=== PATIENT | male | born 1935 | race Caucasian/White ===

== ENCOUNTER 2020-09-25 11:22 | Outpatient (CLI) | payer MEDICARE, OTHER ==
[2020-09-25 14:42] LABS: BASOPHILS # (AUTO) 0.1 10^3/uL (0.0-0.1); BASOPHILS % (AUTO) 1.3 %; EOSINOPHILS # (AUTO) 0.3 10^3/uL (0.0-0.7); EOSINOPHILS % (AUTO) 4.2 %; HGB - HEMOGLOBIN 12.1 g/dL (14.0-18.0); LYMPHOCYTES # (AUTO) 1.2 10^3/uL (1.5-3.5); LYMPHOCYTES % (AUTO) 19.2 %; MEAN CORPUSCULAR HEMOGLOBIN 30.3 pg (27.0-31.0); MEAN CORPUSCULAR HGB CONC 32.9 g/dL (32.0-36.0); MEAN PLATELET VOLUME 10.3 fL (7.4-11.4); MONOCYTES # (AUTO) 0.6 10^3/uL (0.0-1.0); MONOCYTES % (AUTO) 10.4 %; NEUTROPHILS # (AUTO) 3.9 10^3/uL (1.5-6.6); NEUTROPHILS % (AUTO) 63.6 %; PLT - PLATELET COUNT 129 10^3/uL (130-450); RED CELL DISTRIBUTION WIDTH 14.6 % (12.0-15.0); WHITE BLOOD COUNT 6.1 x10^3/uL (4.8-10.8)
[2020-09-25 15:56] LABS: HEMOGLOBIN A1c% 6.2 % (4.27-6.07)
[2020-09-25 16:02] LABS: CALCIUM 9.6 mg/dL (8.5-10.3); CREATININE 1.2 mg/dL (0.6-1.2)
== END 2020-09-25 11:23 | disposition home or self-care (01) ==
LOC: LAB.S 11:22
PROVIDERS: ATTEND Internal Medicine
DX: D69.6 Thrombocytopenia, unspecified (principal); E78.5 Hyperlipidemia, unspecified; I11.0 Hypertensive heart disease with heart failure; I50.22 Chronic systolic (congestive) heart failure; I48.20 Chronic atrial fibrillation, unspecified; E11.9 Type 2 diabetes mellitus without complications; Z79.899 Other long term (current) drug therapy
CPT/HCPCS: 36415; 80048; 82306; 82607; 82746; 83036; 85025

== ENCOUNTER 2021-10-16 10:45 | Outpatient (CLI) | payer MEDICARE, OTHER ==
[2021-10-16 15:17] LABS: ALBUMIN 4.5 g/dL (3.2-5.5); ALBUMIN/GLOBULIN RATIO 1.7 (1.0-2.2); BILIRUBIN,TOTAL 1.1 mg/dL (0.2-1.0); CALCIUM 9.2 mg/dL (8.5-10.3); CREATININE 1.4 mg/dL (0.6-1.2); MAGNESIUM 2.2 mg/dL (1.7-2.8); POTASSIUM 3.9 mmol/L (3.5-5.0); TOTAL PROTEIN 7.2 g/dL (6.7-8.2)
[2021-10-16 20:20] LABS: ESTIMATED AVERAGE GLUCOSE 134 mg/dL (70-100); HEMOGLOBIN A1c% 6.3 % (4.27-6.07)
[2021-10-16 20:32] LABS: CREATININE,URINE 53.6 mg/dL; MICROALBUM/CREATININE RATIO,UR 82.1 ug/mg (<30.0); MICROALBUMIN,URINE 4.4 mg/dL (0-300.0)
== END 2021-10-16 10:46 | disposition home or self-care (01) ==
LOC: LAB.S 10:45
PROVIDERS: ATTEND Internal Medicine
DX: I10 Essential (primary) hypertension (principal); D69.6 Thrombocytopenia, unspecified; K21.9 Gastro-esophageal reflux disease without esophagitis; E11.9 Type 2 diabetes mellitus without complications; E78.5 Hyperlipidemia, unspecified
CPT/HCPCS: 36415; 80053; 82043; 82570; 82607; 82746; 83036; 83735

== ENCOUNTER 2024-06-03 11:39 | Emergency (ER) | payer MEDICARE, OTHER ==
[2024-06-03 12:17] LABS: BASOPHILS # (AUTO) 0.1 10^3/uL (0.0-0.1); BASOPHILS % (AUTO) 1.4 %; EOSINOPHILS # (AUTO) 0.1 10^3/uL (0.0-0.7); EOSINOPHILS % (AUTO) 2.1 %; HCT - HEMATOCRIT 33.5 % (42.0-52.0); HGB - HEMOGLOBIN 10.1 g/dL (14.0-18.0); LYMPHOCYTES # (AUTO) 0.7 10^3/uL (1.5-3.5); LYMPHOCYTES % (AUTO) 12.8 %; MEAN CORPUSCULAR HEMOGLOBIN 27.6 pg (27.0-31.0); MEAN CORPUSCULAR HGB CONC 30.1 g/dL (32.0-36.0); MEAN CORPUSCULAR VOLUME 91.5 fL (80.0-94.0); MEAN PLATELET VOLUME 11.1 fL (7.4-11.4); MONOCYTES # (AUTO) 0.6 10^3/uL (0.0-1.0); MONOCYTES % (AUTO) 9.9 %; NEUTROPHILS # (AUTO) 4.1 10^3/uL (1.5-6.6); NEUTROPHILS % (AUTO) 73.1 %; PLT - PLATELET COUNT 87 10^3/uL (130-450); RED BLOOD COUNT 3.66 10^6/uL (4.70-6.10); RED CELL DISTRIBUTION WIDTH 16.5 % (12.0-15.0); WHITE BLOOD COUNT 5.6 x10^3/uL (4.8-10.8)
--- NOTE | 2024-06-03 12:26 | ED Physician Documentation ---
PD HPI DYSPNEA - Stated complaint Stated Complaint: SOA - Chief complaint Chief Complaint: Resp - Additional information Additional information: 88-year-old male with history of CHF, pulmonary hypertension, type 2 diabetes, osteoarthritis presents emergency department for worsening shortness of breath. 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 Does have history of prostate cancer no recent prolonged travel does live a pretty sedentary life. Patient is anticoagulated on Eliquis for h istory of A-fib. PD PAST MEDICAL HISTORY - Past Medical History Past Medical History: Yes Cardiovascular: Congestive heart failure, Coronary artery disease, Valve disorder Respiratory: Sleep apnea Endocrine/Autoimmune: Type 2 diabetes GI: GERD : Other Musculoskeletal: Osteoarthritis Other Past Medical History: Prostate cancer. AAA - Past Surgical History Past Surgical History: Yes Cardiovascular: CABG, Coronary stent - Present Medications Home Medications: Ambulatory Orders Medication Instructions Recorded Confirmed Apixaban [Eliquis] 5 mg PO DAILY 06/03/24 06/03/24 Furosemide [Lasix] 40 mg PO DAILY 06/03/24 06/03/24 Losartan [Cozaar] 25 mg PO DAILY 06/03/24 06/03/24 Metoprolol Succinate [Toprol Xl] 50 mg PO BID 06/03/24 06/03/24 Multivit with Minerals/Lutein 1 each PO DAILY 06/03/24 06/03/24 [Theratrum Complete 50 Plus Tab] Potassium Chloride [K-Dur] 20 meq PO 0800 06/03/24 06/03/24 Rosuvastatin Calcium [Crestor] 40 mg PO DAILY 06/03/24 06/03/24 amLODIPine [Norvasc] 5 mg PO DAILY 06/03/24 06/03/24 metFORMIN [Glucophage] 500 mg PO DAILY 06/03/24 06/03/24 - Allergies Allergies/Adverse Reactions: Allergies Allergy/AdvReac Type Severity Reaction Status Date / Time No Known Drug Allergies Allergy Verified 06/03/24 11:51 - Social History Does the pt smoke?: No Smoking Status: Former smoker Does the pt drink ETOH?: No Does the pt have substance abuse?: No - Immunizations Immunizations are current?: Yes - POLST Patient has POLST: No PD ED PE NORMAL - Vitals Vital signs reviewed: Yes - General General: Alert and oriented X 3, No acute distress, Well developed/nourished - HEENT HEENT: Atraumatic, Other - Neck Neck: No bony TTP - Cardiac Cardiac: Other (irregularly irregular) - Respiratory Respiratory: Other (diminished breath sounds) - Back Back: No CVA TTP - Derm Derm: Normal color, Warm and dry, No rash - Extremities Extremities: Other (bilateral 1+ pitting edema) - Neuro Neuro: Alert and oriented X 3, copyist 2-12 intact, No motor deficit, No sensory deficit, Normal speech Eye Opening: Spontaneous Motor: Obeys Commands Verbal: Oriented GCS Score: 15 - Psych Psych: Normal mood Results - Vitals Vitals: Vital Signs - 24 hr 06/03/24 06/03/24 06/03/24 11:44 13:51 14:20 Temperature 37.1 C Heart Rate 86 77 77 Respiratory 20 21 21 Rate Blood Pressure 146/124 H 133/78 H O2 Saturation 96 96 95 Oxygen O2 Source Room air - EKG (time done) 1203 EKG releavant findings:: EKG personally interpreted by author of this note. Relevant findings are: Rate: Rate (enter#) (70) Rhythm: Atrial fibrillation, Other (Ventricular premature complex) [place]: Normal QRS: Normal Ischemia: Other (Borderline repolarization abnormality) Computer interpretation: Agree with computer - Labs Labs: Laboratory Tests 06/03/24 06/03/24 06/03/24 12:05 12:05 12:05 WBC 5.6 RBC 3.66 L Hgb 10.1 L Hct 33.5 L MCV 91.5 MCH 27.6 MCHC 30.1 L RDW 16.5 H Plt Count 87 L MPV 11.1 Neut # (Auto) 4.1 Lymph # (Auto) 0.7 L [place] # (Auto) 0.6 Eos # (Auto) 0.1 Baso # (Auto) 0.1 Absolute Nucleated RBC 0.00 Nucleated RBC % 0.0 Sodium 140 Potassium 4.0 Chloride 109 Carbon Dioxide 23 Anion Gap 8.0 BUN 22 H Creatinine 1.2 Estimated GFR (MDRD) 57 L Glucose 146 H Calcium 9.1 Magnesium 1.9 Total Bilirubin 1.7 H AST 18 ALT 10 Alkaline Phosphatase 84 Troponin I High Sens 29.6 H* B-Natriuretic Peptide Total Protein 6.7 Albumin 4.1 Globulin 2.6 Albumin/Globulin Ratio 1.6 Lipase 12 06/03/24 12:05 WBC RBC Hgb Hct MCV MCH MCHC RDW Plt Count MPV Neut # (Auto) Lymph # (Auto) [place] # (Auto) Eos # (Auto) Baso # (Auto) Absolute Nucleated RBC Nucleated RBC % Sodium Potassium Chloride Carbon Dioxide Anion Gap BUN Creatinine Estimated GFR (MDRD) Glucose Calcium Magnesium Total Bilirubin AST ALT Alkaline Phosphatase Troponin I High Sens B-Natriuretic Peptide 167 H Total Protein Albumin Globulin Albumin/Globulin Ratio Lipase - Rads (name of study) chest CTA Relevant Findings:: Final report received, EMP independent interpretation of test, Other (No pulmonary embolus, moderate pulmonary edema small pleural effusions, trace ascites) PD Medical Decision Making - ED course ED course: 88-year-old male presents emergency department for increased shortness of breath. Differentials include pneumonia, worsening CHF, ID,, pulmonary embolism. Labs are complete for further evaluation he has no leukocytosis minimal anemia, hemoglobin 10.1. Electrolytes are within normal limits normal kidney function troponin is slightly elevated at 29.6 but this is most likely due to demand and fluid volume overload. BNP slightly elevated at 167,88-year-old male presents emergency department for increased shortness of breath. Differentials include pneumonia, worsening CHF, ID,, pulmonary embolism. Labs are complete for further evaluation he has no leukocytosis minimal anemia, hemoglobin 10.1. Electrolytes are within normal limits normal kidney function troponin is slightly elevated at 29.6 but this is most likely due to demand and fluid volume overload. BNP slightly elevated at 167. Patient is not hypoxic he had 1 brief episode of hypoxia while laying flat during the CT scan but was able to self resolve onto room air without any complications or difficulty. I believe that patient is experiencing fluid volume overload due to CHF exacerbation. A chest CT angio was complete for further evaluation and did not reveal any pulmonary embolism or pneumonia it does reveal moderate pulmonary edema with small pleural effusions. He was given a one-time dose of IV Lasix here in the emergency department told to follow-up with his can conveyor feeder and primary care provider outpatient to make some medication adjustments to see if he possibly needs additional Lasix to help with the CHF. He was given a CHF diet and told to sleep with his head elevated he has a CPAP at home and was told to continue to use that. Return precautions given all questions answered patient is safe for discharge at this time. Departure - Departure Disposition: 01 Home, Self Care Clinical Impression: CHF exacerbation Qualifiers: Heart failure type: unspecified Qualified Code(s): I50.9 - Heart failure, unspecified Instructions: Heart Failure Diet Changes, Heart Failure Dc Comments: Thank you for trusting us with your care, we have evaluated you for your ongoing shortness of breath. We have completed a chest CT to make sure that there was no blood clot in your lungs and we are not seeing any acute pulmonary embolism we are seeing that you have extra fluid on your lungs which is most likely what is causing your shortness of breath sensation that you have been experiencing at home. We have given you a one-time dose of IV Lasix here in the emergency department but it is very important going home that you are sticking to a low- sodium diet I have attached some instructions and additional information with how to manage this at home. I would also encourage you to sleep with your head tilted upright to help with your breathing at nighttime to help with the extra fluid on your lungs. Please follow-up with your primary care provider and your can conveyor feeder as soon as possible to discuss today's ER visit and discuss some possible medication changes to help with your worsening CHF symptoms. Please come back to the ER if you are having any worsening shortness of breath, fevers or chills, nausea vomiting or chest pain. Forms: PCP List Discharge Date/Time: 06/03/24 14:38
[2024-06-03 12:30] LABS: ALBUMIN 4.1 g/dL (3.2-5.5); ALBUMIN/GLOBULIN RATIO 1.6 (1.0-2.2); BILIRUBIN,TOTAL 1.7 mg/dL (0.2-1.0); CALCIUM 9.1 mg/dL (8.5-10.3); CREATININE 1.2 mg/dL (0.6-1.3); MAGNESIUM 1.9 mg/dL (1.7-2.3); TOTAL PROTEIN 6.7 g/dL (6.4-8.9)
[2024-06-03] MEDS ORDERED: iohexoL-300 100 ML VIAL ONE (12:32)
--- NOTE | 2024-06-03 13:27 | CT Report ---
PROCEDURE: Angio Chest INDICATIONS: soa, r/o pe CONTRAST: 100 TECHNIQUE: After the administration of intravenous contrast, 2 mm axial images were acquired from the pulmonary apices to the posterior costophrenic angles during the arterial phase. In addition, 1 mm lung kernel and 5 mm soft tissue kernel reconstructions were performed. 3-dimensional coronal oblique maximum int ensity projection (MIP) reformats, 8 mm axial MIP, and 5 mm coronal and sagittal MPR reformats were t hen performed through the thorax. For radiation dose reduction, the following was used: automated exp osure control, adjustment of mA and/or kV according to patient size. COMPARISON: None. FINDINGS: Image quality: Diagnostic. Suboptimal due to motion artifact. Large vessels: No filling defects within the opacified pulmonary arteries, accounting for motion and contrast timing. No evidence of acute aortic syndrome or aortic aneurysm. Lungs and pleura: No consolidation. Small pleural effusions. Central groundglass and mild smooth inte rstitial thickening. Moderate centrilobular emphysema. Bronchial thickening. No suspicious pulmonary nodules which require follow up. Mediastinum: Heart size is enlarged, with three-vessel coronary calcifications No pericardial effusio n. No large vessel abnormality. No mediastinal adenopathy by size criteria. Reflux of contrast into the IVC, indicating elevated pressures. Chest wall and lower neck: Thyroid is unremarkable. No axillary or supraclavicular adenopathy by size . Bones: No aggressive osseous abnormality. Upper Abdomen: Trace ascites. IMPRESSION: No pulmonary embolus. Moderate pulmonary edema with small pleural effusions Trace ascites, which may indicate third spacing of fluids given the small pleural effusions. Reviewed by: Lázaro Prasad MD on 06/03/2024 1:25 PM PDT Approved by: Lázaro Prasad MD on 06/03/2024 1:25 PM PDT Station ID: [id number]
[2024-06-03] MEDS: FUROSEMIDE 20 MG/2 ML VIAL IVP STA (14:16)
[2024-06-03 14:41] VITALS: BP 133/78; O2SAT 95
[2024-06-03] MEDS: iohexoL-300 100 ML VIAL IVP ONE (18:32)
== END 2024-06-03 14:38 | disposition home or self-care (01) ==
LOC: ED 11:39
DX: I50.9 Heart failure, unspecified (principal); Z87.891 Personal history of nicotine dependence
CPT/HCPCS: 36415; 71275; 80053; 83690; 83735; 83880; 84484; 85025; 93005; 96374; 99284; Q9967